=== PATIENT | female | born 1965 | race Caucasian/White ===

== ENCOUNTER 2018-04-01 18:07 | Emergency (ER) | payer OTHER ==
--- NOTE | 2018-04-01 18:18 | ED Physician Documentation ---
Abdominal Pain - HISTORIAN Historian: patient - HPI Chief Complaint: Abdominal Pain Additonal Information: 53yo white female who developed some abd pain. Has been present for several days , worse today. Pain in the upper abd bialt and radiates into the back area. Has been nauseated and vomiting. No diarrhea today, did have some several days ago. Has had some mild chills, no fever noted. No previous problems with abd pain. Eat sometimes makes ? worse. Pain discribed as a burning knife like pain. Onset: days ago Duration: constant Timing: worse Context: denies: out of country travel, bad food Severity: severe Quality: burning, cramping, sharp Associated Symptoms: chills, nausea, vomiting, loss of appetite. denies: fever , coffee ground emesis, bloody emesis, diarrhea, bloody stools, grossly bloody stools Exacerbated by: nothing, other (?? by eating) Relieved by: nothing - ROS CONST: no problems GI/: denies: constipation (last BM yesterday and normal) CVS/RESP: none EYES/ENT: none MS/SKIN/LYMPH: denies: none NEURO/PSYCH: anxiety, depression - SOCIAL HX Smoking History: greater than 1 pack/day Alcohol Use: none Drug Use: none - FAMILY HX Family History: no significant history - PAST HX Past History: none Other History: none Surgeries/Procedures: none Immunizations: referred to PCP Home Medications: Ambulatory Orders Medication Instructions Recorded Amitriptyline HCl [Elavil] 35 mg PO HS 04/01/18 Mirtazapine [Remeron] 15 mg PO HS 04/01/18 Olanzapine [Zyprexa] 15 mg PO HS 04/01/18 Allergies/Adverse Reactions: Allergies Allergy/AdvReac Type Severity Reaction Status Date / Time Penicillins Allergy Severe Anaphylaxis Verified 04/01/18 18:24 - VITAL SIGNS Vital Signs: Vital Signs Temp Pulse Resp BP Pulse Ox 97.6 F 80 20 145/74 94 04/01/18 18:07 04/01/18 18:07 04/01/18 18:07 04/01/18 18:07 04/01/18 18:07 - REVIEWED ASSESSMENTS Nursing Assessment Reviewed: Yes Vitals Reviewed: Yes Progress - Progress Progress: 18:59 pain is improved 5/10, still is nauseated but better. 20:00 Pain is much better, 2-3/10. Most of nausea is still gone. ED Results Lab/Radiology - Lab Results Lab Results: Lab Results 04/01/18 04/01/18 04/01/18 Unknown Unknown Unknown WBC Pending RBC 4.23 M/ul M/ul (3.90-5.20) Hgb 13.2 g/dL g/dL (12.0-16.0) Hct 38.9 % % (34.5-46.5) MCV 92.1 fl fl (80.0-100.0) MCH 31.2 pg pg (28.0-34.0) MCHC 33.9 g/dL g/dL (30.0-36.0) RDW 14.6 % H % (11.3-14.3) Plt Count 355 K/mm3 K/mm3 (130-400) Neut % (Auto) 68.0 % % (39.0-79.0) Lymph % (Auto) 26.3 % % (16.0-50.0) [place] % (Auto) 3.2 % % (0.0-11.0) Eos % (Auto) 1.7 % % (0.0-6.8) Baso % (Auto) 0.4 (0.0-1.5) Neut # (Auto) 8.2 # k/uL H # k/uL (1.4-7.7) Lymph # (Auto) 3.2 # k/uL # k/uL (0.6-4.0) [place] # (Auto) 0.4 # k/uL # k/uL (0.0-0.9) Eos # (Auto) 0.2 # k/uL # k/uL (0.0-0.6) Baso # (Auto) 0.0 # k/uL # k/uL (0.0-0.5) Reactive Lymphs % 0.5 % % (0.0-5.0) Reactive Lymphs # 0.1 # k/uL # k/uL (0.0-0.8) Sodium 140 mmol/L mmol/L (136-145) Potassium 3.5 mmol/L mmol/L (3.5-5.1) Chloride 104 mmol/L mmol/L (98-107) Carbon Dioxide 29 mmol/L mmol/L (22-30) BUN 9 mg/dL mg/dL (7-17) Creatinine 0.70 mg/dL mg/dL (0.52-1.04) Estimated Creat Clear 116 Est GFR ( Amer) > 60 (60 - ) Est GFR (Non-Af Amer) > 60 (60 - ) Glucose 134 mg/dL H mg/dL (74-106) Calcium 9.1 mg/dL mg/dL (8.4-10.2) Total Bilirubin < 0.1 mg/dL L mg/dL (0.2-1.3) AST 18 U/L U/L (15-46) ALT 24 U/L U/L (13-69) Alkaline Phosphatase 79 U/L U/L (38-126) Total Protein 6.8 g/dL g/dL (6.3-8.2) Albumin 3.9 g/dL g/dL (3.5-5.0) Lipase 91 U/L U/L (23-300) - Radiology Radiology Impressions: PA chest and flat and upright abdomen PA chest dated April 01, 2018 is without prior radiographs for comparison. The cardiomediastinal silhouette is normal. Pulmonary vascularity is normal. Lungs are clear. Flat and upright views of the abdomen were obtained which demonstrate the presence of an umbilical piercing. No free air is seen. No dilated loops of large or small bowel are noted. No abnormal calcifications are noted. Impression: No acute cardiopulmonary process. Nonobstructive bowel gas pattern. No abnormal calcifications are noted. - Orders Orders: ED Orders Category Date Time Status ABD SERIES PA CHEST [RAD] Stat Exams 04/01/18 Completed CBC/PLATELET/DIFF Routine Lab 04/01/18 Results CMP Routine Lab 04/01/18 Completed LIPASE Stat Lab 04/01/18 Completed URINALYSIS Routine Lab 04/01/18 Received 0.9 % Sodium Chloride [Normal Saline] 1,000 ml Med 04/01/18 18:30 Ordered IV Q10H Ketorolac Tromethamine [Toradol] Med 04/01/18 18:23 Discontinued 30 mg IVP NOW ONE Lidocaine 2%Visc 15ml [Xylocaine] Med 04/01/18 19:03 Discontinued 300 mg .ROUTE .STK-MED ONE Mag Hydrox/Aluminum Hyd/Simeth [Mylanta] 30 ml Med 04/01/18 19:04 Discontinued Lidocaine 2%Visc 15ml [Xylocaine] 20 mg PHENobarb/HYOSCY/ATROPINE/SCOP [] 10 ml PO NOW Magnesium, Aluminum Hydroxide [Maalox] Med 04/01/18 19:03 Discontinued 30 ml PO .STK-MED ONE Ondansetron HCl/Pf [Zofran 4 mg/2 ml] Med 04/01/18 18:23 Discontinued 4 mg IVP NOW ONE Abdominal Pain Physical Exam - Physical Exam General Appearance: alert, moderate distress EENT: pharynx normal, no signs of dehydration NECK: normal inspection, supple. No: lymphadenopathy, stiff neck RESPIRATORY: no resp distress, chest non-tender, breath sounds normal. No: wheezes, rales, rhonchi CVS: reg rate & rhythm, heart sounds normal, equal pulses, no murmur, no gallop ABDOMEN: soft, no organomegaly, normal bowel sounds, no distension, tenderness ( LUQ, RLQ, epigastric). No: mass, rebound, guarding BACK: no CVA tenderness SKIN: warm/dry, normal color EXTREMITIES: non-tender NEURO: oriented X3, CN's nml as tested, motor nml, sensation nml Vital Signs: Vital Signs Temp Pulse Resp BP Pulse Ox 97.6 F 80 20 145/74 94 04/01/18 18:07 04/01/18 18:07 04/01/18 18:07 04/01/18 18:07 04/01/18 18:07 Discharge Clincal Impression: Abdominal pain Qualifiers: Abdominal location: upper abdomen, unspecified Qualified Code(s): R10.10 - Upper abdominal pain, unspecified Referrals: Primary Doctor,No [Primary Care Provider] - 2 Days Additional Instructions: Start taking omeprazole (Prilosec) 20mg twice a day for the next 3 days. Avoid caffeine, tobacco, spicy foods, alcohol, and chocolate. If you continue to have problems to see your primary care provider or return to the ED. Watch for any blood in vomit or stools. Condition: Stable Disposition: 01 HOME, SELF-CARE Decision to Admit: NO Date of Decison to Admit: 04/01/18 Decision Time: 20:03
[2018-04-01] MEDS ORDERED: ONDANSETRON HCL/PF 4 MG/ 2ML VIAL IVP ONE (18:23)
[2018-04-01] MEDS ORDERED: KETOROLAC TROMETHAMINE 30 MG/1ML VIAL IVP ONE (18:23)
[2018-04-01] MEDS ORDERED: 0.9 % SODIUM CHLORIDE 1,000 ML IV ONE (18:29)
[2018-04-01] MEDS ORDERED: 0.9 % SODIUM CHLORIDE 1,000 ML IV SCH (18:30)
[2018-04-01 19:03] LABS: eGFR (African) > 60; eGFR (Non-African) > 60
[2018-04-01] MEDS ORDERED: Lidocaine 2%Visc 15ml 20 MG/ML UDC ONE (19:03)
[2018-04-01] MEDS ORDERED: MAGNESIUM, ALUMINUM HYDROXIDE 30 ML UDC PO ONE (19:03)
[2018-04-01] MEDS ORDERED: MAG HYDROX/ALUMINUM HYD/SIMETH 30 ML, Lidocaine 2%Visc 15ml 20 MG, PHENobarb/HYOSCY/ATR... PO ONE ×3 (19:04)
[2018-04-01 19:11] LABS: BASOPHILS % 0.4 (0.0-1.5); EOSINOPHILS % 1.7 % (0.0-6.8); MEAN CORPUSCULAR HEMOGLOBIN 31.2 pg (28.0-34.0); MEAN CORPUSCULAR VOLUME 92.1 fl (80.0-100.0); MONOCYTES % 3.2 % (0.0-11.0); NEUTROPHILS # 8.2 # k/uL (1.4-7.7)
--- NOTE | 2018-04-01 19:46 | Diagnostic Imaging Report ---
URIEL HERNANDEZ [facility] [address] [facility] [address] [id number] Report Submission Date: Apr 01, 2018 7:44:29 PM CDT Patient Study Name: KAVITA OLIVARES I Date: Apr 01, 2018 7:14:07 PM CDT Modality Type: DX Gender: F Description: ABDOMEN : 69 Institution: [facility] Physician: URIEL HERNANDEZ PA chest and flat and upright abdomen PA chest dated April 01, 2018 is without prior radiographs for comparison. The cardiomediastinal silhouette is normal. Pulmonary vascularity is normal. Lungs are clear. Flat and upright views of the abdomen were obtained which demonstrate the presence of an umbilical piercing. No free air is seen. No dilated loops of large or small bowel are noted. No abnormal calcifications are noted. Impression: No acute cardiopulmonary process. Nonobstructive bowel gas pattern. No abnormal calcifications are noted. Electronically signed on Apr 01, 2018 7:44:29 PM CDT by: Yasmin SLATER
[2018-04-01 20:42] VITALS: BP 118/73
== END 2018-04-01 20:19 | disposition home or self-care (01) ==
LOC: ED 18:07
DX: R10.10 Upper abdominal pain, unspecified (principal)
CPT/HCPCS: 74022; 80053; 83690; 85025; A9270; J1885; J2405; J7030; 81002; 96365; 96375; 99284